=== PATIENT | female | born 1980 | race Caucasian/White ===

== ENCOUNTER 2019-07-07 11:42 | Emergency (ER) | payer SELFPAY ==
[~2019-07-07] VITALS: Ht 175.3 cm; Wt 63.5 kg
[2019-07-07 12:00] VITALS: BP 119/92
--- NOTE | 2019-07-07 12:00 | NUR ---
Patient discharged to home in stable conditon. Written and verbal after care instructions given. Patient verbalizes understanding of instructions. Patient ambulated with stable gait.
== END 2019-07-07 12:00 | disposition home or self-care (01) ==
LOC: ER 11:42
DX: F42.9 Obsessive-compulsive disorder, unspecified (principal); Z76.0 Encounter for issue of repeat prescription
CPT/HCPCS: A4663